=== PATIENT | female | born 1975 | race Caucasian/White ===

== ENCOUNTER 2017-11-25 02:25 | Emergency (ER) | payer SELFPAY ==
[~2017-11-25] VITALS: Ht 162.6 cm; Wt 98.7 kg
[~2017-11-25 02:25] MED LIST: FLEXERIL10 MG PO; HYCODAN SYRUP480 ML PO; LORTAB 5-325 M1 EACH PO; PREDNISONE10 MG PO; ZITHROMAX Z-PA250 MG PO; no home med
[2017-11-25] MEDS ORDERED: FLEXERIL10 MG PO (03:10)
[2017-11-25 03:34] VITALS: BP 202/98
== END 2017-11-25 03:34 | disposition home or self-care (01) ==
LOC: EME 02:25
DX: M54.12 Radiculopathy, cervical region (principal)
CPT/HCPCS: 99281; 99283; J1885